=== PATIENT | female | born 1970 | race Caucasian/White ===

== ENCOUNTER 2016-09-18 13:07 | Emergency (ER) | payer OTHER ==
[2016-09-18 13:57] VITALS: BMI 31.1
--- NOTE | 2016-09-18 14:16 | PDOC ---
[id number] No Limitations - History of Present Illness Initial Comments: 09/18/16 15:39 Patient is a 46 year old female with significant past medical history of MRDD developmentally delayed who presents to the ED sent by PCP for elevated BP. Patients aid reports a cough with phlegm. She also notes that the patient has been complaining of ear pain. She states that the patient has been feeling nauseous. She denies fever, chills, vomiting, diarrhea, constipation. <Ayanna Ordaz - Last Filed: 09/18/16 19:09> <Rico Liao - Last Filed: 10/31/16 09:53> - General Chief Complaint: Urinary Problem Stated Complaint: HYPERTENSION Time Seen by Provider: 09/18/16 14:16 Past History <Ayanna Ordaz - Last Filed: 09/18/16 19:09> - Past Medical History Other medical history: MR - Immunization History Immunization Up to Date: Yes - Psycho/Social/Smoking Cessation Hx Suicidal Ideation: No Smoking History: Never smoked <Rico Liao - Last Filed: 10/31/16 09:53> - Past Medical History Allergies/Adverse Reactions: Allergies Allergy/AdvReac Type Severity Reaction Status Date / Time nitrofurantoin Allergy Verified 09/18/16 14:28 Penicillins Allergy Verified 09/18/16 14:28 Home Medications: Ambulatory Orders Atorvastatin Calcium [Lipitor] 10 mg PO HS 09/18/16 Esomeprazole Magnesium [Nexium] 40 mg PO DAILY 09/18/16 Ezetimibe [Zetia] 10 mg PO DAILY 09/18/16 Folic Acid - 1 mg PO DAILY 09/18/16 Ibuprofen [Motrin -] 800 mg PO TID PRN 09/18/16 Omega3/Dha/Epa/Fish Oil/Vit D3 1 tab PO DAILY 09/18/16 Vitamin B Complex [B Complex] 1 each PO DAILY 09/18/16 Review of Systems - Review of Systems Able to Perform ROS?: Yes Comments:: 09/18/16 15:40 GENERAL/CONSTITUTIONAL: No fever or chills. No weakness. HEAD, EYES, EARS, NOSE AND THROAT: +ear pain. No change in vision. No discharge. No sore throat. CARDIOVASCULAR: No chest pain or shortness of breath. RESPIRATORY: +cough, No wheezing, or hemoptysis. GASTROINTESTINAL: +nausea, No vomiting, diarrhea or constipation. GENITOURINARY: No dysuria, frequency, or change in urination. MUSCULOSKELETAL: No joint or muscle swelling or pain. No neck or back pain. SKIN: No rash NEUROLOGIC: No headache, vertigo, loss of consciousness, or change in strength/ sensation. ENDOCRINE: No increased thirst. No abnormal weight change. HEMATOLOGIC/LYMPHATIC: No anemia, easy bleeding, or history of blood clots. ALLERGIC/IMMUNOLOGIC: No hives or skin allergy. <Ayanna Ordaz - Last Filed: 09/18/16 19:09> *Physical Exam - Vital Signs Last Vital Signs Temp Pulse Resp BP Pulse Ox 100.3 F H 106 H 20 138/102 95 09/18/16 13:54 09/18/16 13:54 09/18/16 13:54 09/18/16 13:54 09/18/16 13:54 - Physical Exam Comments: 09/18/16 15:40 GENERAL: Awake, alert, and fully oriented, in no acute distress HEAD: No signs of trauma EYES: PERRLA, EOMI, sclera anicteric, conjunctiva clear ENT: +TMs erythematous bilaterally. Hearing grossly normal, nares patent, oropharynx clear without exudates. Moist mucosa NECK: Normal ROM, supple, no lymphadenopathy, JVD, or masses LUNGS: Breath sounds equal, clear to auscultation bilaterally. No wheezes, and no crackles HEART: Regular rate and rhythm, normal S1 and S2, no murmurs, rubs or gallops ABDOMEN: Soft, nontender, normoactive bowel sounds. No guarding, no rebound. No masses EXTREMITIES: Normal range of motion, no edema. No clubbing or cyanosis. No cords, erythema, or tenderness NEUROLOGICAL: Cranial nerves II through XII grossly intact. Normal speech, normal gait SKIN: Warm, Dry, normal turgor, no rashes or lesions noted. <Ayanna Ordaz - Last Filed: 09/18/16 19:09> - Vital Signs Last Vital Signs Temp Pulse Resp BP Pulse Ox 100.3 F H 106 H 20 138/102 95 09/18/16 13:54 09/18/16 13:54 09/18/16 13:54 09/18/16 13:54 09/18/16 13:54 <Rico Liao - Last Filed: 10/31/16 09:53> Heart Score/ECG Review #1 09/18/16 16:33 EKG was reviewed by Dr. Liao Impression: sinus tachycardia at [address] and T wave abnormality <Ayanna Ordaz - Last Filed: 09/18/16 19:09> ED Treatment Course - LABORATORY CBC & Chemistry Diagram: 09/18/16 15:33 09/18/16 15:27 - RADIOLOGY Radiology Studies Ordered: 09/18/16 17:15 EXAM#: TYPE/EXAM: RESULT: [id number] RAD/CHEST X-RAY PORTABLE* HISTORY PROVIDED: Cough. A single frontal portable projection of the chest at 3:53 PM is submitted. Agris heart size is enlarged. There are some increased markings throughout the lung allen suggesting a mild degree of acute congestion. Clinical correlation is advised. No discrete infiltrates or pleural effusions are present. Spinal rods are noted within the thoracic spine. IMPRESSION: Cardiomegaly and possible mild congestion. <Ayanna Ordaz - Last Filed: 09/18/16 19:09> - LABORATORY CBC & Chemistry Diagram: 09/18/16 15:33 09/18/16 15:27 <Rico Liao - Last Filed: 10/31/16 09:53> Medical Decision Making - Medical Decision Making 09/18/16 15:41 Patient is a 46 year old female with significant past medical history of MRDD developmentally delayed who presents to the ED sent by PCP for elevated BP. BP was very high in the office he called an ambulance. She went to see him for the cough. I believe that hypertension is situational and will treat for bronchitis. Will order CXR, blood cultures, lactic, septic workup, levaquin because shes allergic to penicillin. 09/18/16 19:09 Since my shift is over, I endorse continuation of care to Dr. Sierra the overnight attending. <Ayanna Ordaz - Last Filed: 09/18/16 19:09> *DC/Admit/Observation/Transfer - Attestations Scribe Attestion: 09/18/16 15:42 Documentation prepared by CASA Lozada, acting as internist medical doctor md for Rico Liao MD/DO. <Ayanna Ordaz - Last Filed: 09/18/16 19:09> - Attestations Physician Attestion: 09/18/16 14:16 I, Dr. Rico Liao, attest that this document has been prepared under my direction and personally reviewed by me in its entirety. I further attest, that it accurately reflects all work, treatment, procedures and medical decision -making performed by me. <Rico Liao - Last Filed: 10/31/16 09:53> Diagnosis at time of Disposition: URI, acute CHF (congestive heart failure) Qualifiers: Congestive heart failure type: unspecified congestive heart failure type Congestive heart failure chronicity: chronic Qualified Code(s): I50.9 - Heart failure, unspecified - Discharge Dispostion Disposition: HOME Condition at time of disposition: Stable - Referrals Referrals: Sarahi Sutton MD [Primary Care Provider] - - Patient Instructions Additional Instructions: CONTINUE ALL YOUR MEDICATIONS PRESCRIBED NO "FLU" MEDICATIONS (NYQUIL/SUDAFED/TYLENOL-FLU, ETC) TYLENOL IF FEVER USUAL DIET FOLLOW UP PCP RETURN IF WORSENING OR NEW SYMPTOMS
[2016-09-18] MEDS ORDERED: LEVOFLOXACIN 750 MG IVPB 150 ML IVPB ONE (15:36)
[2016-09-18] MEDS ORDERED: LORAZEPAM CARPU-JECT 2 MG/ML DISP.SYRIN IVPUSH ONE (15:38)
[2016-09-18 15:41] LABS: BASOPHIL 0.4 % (0-2.0); EOSINOPHIL 1.5 % (0-4.5); MEAN CELL VOLUME 85.5 fl (80-96); MEAN PLT VOLUME 8.9 fl (7.5-11.1); NEUTROPHILS 84.4 % (42.8-82.8); PLATELET COUNT 242 K/MM3 (134-434); RDW 14.2 % (11.6-15.6); WHITE BLOOD COUNT 10.4 K/mm3 (4.0-10.0)
[2016-09-18 15:54] LABS: INR 1.2 (0.82-1.09); PROTHROMBIN TIME (PATIENT) 13.2 SEC (9.98-11.88)
[2016-09-18] MEDS ORDERED: ACETAMINOPHEN 325 MG TABLET (FP) ONE (16:08)
[2016-09-18 16:12] LABS: ALBUMIN 3.9 g/dl (3.4-5.0); ANION GAP 10 (8-16); BILIRUBIN,TOTAL 0.7 mg/dL (0.2-1.0); CALCIUM 9.3 mg/dL (8.5-10.1); CO2 27 mmol/L (21-32); CREATININE 0.6 mg/dL (0.55-1.02); GLUCOSE,RANDOM 100 mg/dL (74-106); SGPT/ALT 45 U/L (12-78)
[2016-09-18 16:14] LABS: ALK PHOS 195 U/L (45-117); TROPONIN I < 0.02 ng/ml (0.00-0.05)
[2016-09-18 16:15] LABS: SGOT/AST 36 U/L (15-37)
[2016-09-18] MEDS ORDERED: ACETAMINOPHEN INJECTION 100 ML IVPB ONE (16:25)
[2016-09-18] MEDS ORDERED: ACETAMINOPHEN 1000 MG/100 ML VIAL (NON FORMULARY) IVPB ONE (16:26)
[2016-09-18 16:33] LABS: URINE APPEARANCE CLEAR; URINE BILIRUBIN NEGATIVE (NEGATIVE); URINE COLOR LTYELLOW; URINE GLUCOSE (UA) NEGATIVE (NEGATIVE); URINE KETONE NEGATIVE (NEGATIVE); URINE LEUK ESTERASE NEGATIVE (NEGATIVE); URINE NITRITE NEGATIVE (NEGATIVE); URINE UROBILINOGEN NEGATIVE E.U./dl (0.2-1.0)
[2016-09-18 16:51] LABS: URINE BLOOD 1+ (NEGATIVE); URINE PROTEIN 2+ (NEGATIVE)
[2016-09-18 16:54] LABS: URINE BACTERIA RARE /hpf (NONE SEEN); URINE MUCUS RARE; URINE RBC 1 /hpf (0-3); URINE WBC 2 /hpf (3-5)
[2016-09-18] MEDS ORDERED: cloNIDine HCL 0.1 MG TABLET ONE (16:58)
[2016-09-18] MEDS ORDERED: cloNIDine HCL 0.1 MG TABLET PO ONE (16:59)
[2016-09-18] MEDS ORDERED: hydrALAZINE HCL 20 MG/ML VIAL ONE (18:18)
[2016-09-18] MEDS ORDERED: SODIUM CHLORIDE 1,000 ML IV STA (18:34)
[2016-09-18] MEDS ORDERED: hydrALAZINE HCL 20 MG/ML VIAL IVPUSH PRN (18:34)
[2016-09-18] MEDS ORDERED: FUROSEMIDE 40 MG/4 ML INJECTABLE VIAL IVPUSH ONE (20:44)
--- NOTE | 2016-09-18 20:44 | PDOC ---
*Physical Exam - Vital Signs Last Vital Signs Temp Pulse Resp BP Pulse Ox 99 F 120 H 26 H 138/64 98 09/18/16 19:49 09/18/16 19:49 09/18/16 19:49 09/18/16 19:49 09/18/16 19:49 - Physical Exam Comments: 09/18/16 20:40 IN NAD. CXR SHOWING MILD CONGESTION LASIX 10 IV URI WILL NOT CTA AT THIS POINT BECAUSE HER DX IS MILD CHF 09/18/16 20:41 ED Treatment Course - LABORATORY CBC & Chemistry Diagram: 09/18/16 15:33 09/18/16 15:27 - ADDITIONAL ORDERS Additional order review: Laboratory Results 09/18/16 09/18/16 09/18/16 17:30 16:25 15:33 INR Sodium Potassium Chloride Carbon Dioxide Anion Gap BUN Creatinine Creat Clearance w eGFR Random Glucose Lactic Acid 0.916 Calcium Total Bilirubin AST ALT Alkaline Phosphatase Creatine Kinase Troponin I B-Natriuretic Peptide 263.52 H Total Protein Albumin Urine Color Ltyellow Urine Appearance Clear Urine pH 7.0 Ur Specific [place] 1.012 Urine Protein 2+ H Urine Glucose (UA) Negative Urine Ketones Negative Urine Blood 1+ H Urine Nitrite Negative Urine Bilirubin Negative Urine Urobilinogen Negative Ur Leukocyte Esterase Negative Urine RBC 1 Urine WBC 2 Ur Epithelial Cells Rare Urine Bacteria Rare Urine Mucus Rare 09/18/16 09/18/16 15:33 15:27 INR 1.20 H Sodium 143 Potassium 3.9 Chloride 106 Carbon Dioxide 27 Anion Gap 10 BUN 10 Creatinine 0.6 Creat Clearance w eGFR > 60 Random Glucose 100 Lactic Acid Calcium 9.3 Total Bilirubin 0.7 AST 36 ALT 45 Alkaline Phosphatase 195 H Creatine Kinase 75 Troponin I < 0.02 B-Natriuretic Peptide Total Protein 8.0 Albumin 3.9 Urine Color Urine Appearance Urine pH Ur Specific [place] Urine Protein Urine Glucose (UA) Urine Ketones Urine Blood Urine Nitrite Urine Bilirubin Urine Urobilinogen Ur Leukocyte Esterase Urine RBC Urine WBC Ur Epithelial Cells Urine Bacteria Urine Mucus 09/18/16 15:33 Influenza Types A,B Antigen (LUL) - Final Nasopharyngeal Swab - Final 09/18/16 15:33 RBC 4.52 MCV 85.5 MCHC 34.0 RDW 14.2 MPV 8.9 Neutrophils % 84.4 H Lymphocytes % 8.8 Monocytes % 4.9 Eosinophils % 1.5 Basophils % 0.4 - Medications Given in the ED: ED Medications Discontinued Medications Generic Name Dose Route Start Last Admin Trade Name Kirit PRN Reason Stop Dose Admin Acetaminophen 1,000 mg 09/18/16 16:26 09/18/16 16:26 Ofirmev Injection - IVPB 09/18/16 16:27 1,000 mg NOW ONE Administration Clonidine 0.1 mg 09/18/16 16:59 09/18/16 16:59 Catapres - PO 09/18/16 17:00 0.1 mg NOW ONE Administration Levofloxacin 150 mls @ 100 mls/hr 09/18/16 15:36 09/18/16 16:25 Levaquin 750 Mg Premixed Ivpb - IVPB 09/18/16 17:05 100 mls/hr ONCE ONE Administration Sodium Chloride 1,000 mls @ 1,000 mls/hr 09/18/16 18:34 09/18/16 18:41 Normal Saline - IV 09/18/16 19:33 1,000 mls/hr ASDIR STA Administration Lorazepam 1 mg 09/18/16 15:38 09/18/16 16:41 Ativan Injection - IVPUSH 09/18/16 15:39 Not Given ONCE ONE *DC/Admit/Observation/Transfer Diagnosis at time of Disposition: Acute upper respiratory infection Congestive heart failure Qualifiers: Congestive heart failure type: unspecified congestive heart failure type Congestive heart failure chronicity: chronic Qualified Code(s): I50.9 - Heart failure, unspecified - Discharge Dispostion Disposition: HOME Condition at time of disposition: Stable - Referrals Referrals: Sarahi Sutton MD [Primary Care Provider] - - Patient Instructions Additional Instructions: CONTINUE ALL YOUR MEDICATIONS PRESCRIBED NO "FLU" MEDICATIONS (NYQUIL/SUDAFED/TYLENOL-FLU, ETC) TYLENOL IF FEVER USUAL DIET FOLLOW UP PCP RETURN IF WORSENING OR NEW SYMPTOMS - Post Discharge Activity
[2016-09-18] MEDS ORDERED: FUROSEMIDE 40 MG/4 ML INJECTABLE VIAL ONE (21:10)
[2016-09-18 21:43] VITALS: BP 117/65; PULSE 105; TEMP 98.7
--- NOTE | 2016-09-19 17:49 | EKG ---
Test Reason : Blood Pressure : / mmHG Vent. Rate : 112 BPM Atrial Rate : 112 BPM P-R Int : 132 ms QRS Dur : 080 ms QT Int : 356 ms P-R-T Axes : 040 009 049 degrees QTc Int : 485 ms SINUS TACHYCARDIA NONSPECIFIC ST AND T WAVE ABNORMALITY ABNORMAL ECG WHEN COMPARED WITH ECG OF 18-SEP-2016 14:31, T WAVE VARIATION Confirmed by ALLIE LITTLE MD ([id number]) on 09/19/2016 5:48:58 PM Referred By: Confirmed By:ALLIE LITTLE MD
--- NOTE | 2016-09-24 10:30 | EKG ---
Test Reason : Blood Pressure : / mmHG Vent. Rate : 101 BPM Atrial Rate : 101 BPM P-R Int : 136 ms QRS Dur : 084 ms QT Int : 338 ms P-R-T Axes : 030 012 024 degrees QTc Int : 438 ms SINUS TACHYCARDIA NONSPECIFIC ST AND T WAVE ABNORMALITY ABNORMAL ECG NO PREVIOUS ECGS AVAILABLE Confirmed by IRA KASPER MD ([id number]) on 09/24/2016 10:30:11 AM Referred By: Confirmed By:IRA KASPER MD
== END 2016-09-18 23:38 | disposition home or self-care (01) ==
LOC: JER 13:07
PROC: 3E0337Z Introduction of Electrolytic and Water Balance Substance into Peripheral Vein, Percutaneous Approach (ICD-10-PCS; principal; 2016-09-18)
PROC: 3E03329 Introduction of Other Anti-infective into Peripheral Vein, Percutaneous Approach (ICD-10-PCS; 2016-09-18)
PROC: 3E033NZ Introduction of Analgesics, Hypnotics, Sedatives into Peripheral Vein, Percutaneous Approach (ICD-10-PCS; 2016-09-18)
PROC: 3E033GC Introduction of Other Therapeutic Substance into Peripheral Vein, Percutaneous Approach (ICD-10-PCS; 2016-09-18)
DX: I50.9 Heart failure, unspecified (principal); J06.9 Acute upper respiratory infection, unspecified; I10 Essential (primary) hypertension
CPT/HCPCS: 36415; 71010-TC; 80053; 81003; 81015; 82550; 83605; 83880; 84484; 85025; 85610; 87040; 87086; 87804; 93005; 93010; 96361; 96365; 96375; 99284-25

== ENCOUNTER 2019-10-15 10:23 | Day surgery (SDC) | payer OTHER ==
[2019-10-15] MEDS ORDERED: DEXAMETHASONE SOD PHOSPHATE 10 MG/1 ML VIAL IVPB ONE ×2 (11:00→11:45)
[2019-10-15] MEDS ORDERED: ACETAMINOPHEN 325 MG TABLET (FP) PO ONE (11:00)
[2019-10-15] MEDS ORDERED: RITUXIMAB IVPB ONE (11:30)
[2019-10-15] MEDS ORDERED: SODIUM CHLORIDE IVPB ONE (11:30)
[2019-10-15 16:47] VITALS: PULSE 79
[2019-10-21 10:04] VITALS: BP 141/86; TEMP 98.8
== END 2019-10-15 20:45 | disposition home or self-care (01) ==
LOC: JCHEMO 10:23 → J7W 10:24 → JCHEMO 20:45
PROVIDERS: ATTEND Internal Medicine Hematology & Oncology
PROC: XW033B3 Introduction of Cytarabine and Daunorubicin Liposome Antineoplastic into Peripheral Vein, Percutaneous Approach, New Technology Group 3 (ICD-10-PCS; principal; 2019-10-15)
DX: Z51.11 Encounter for antineoplastic chemotherapy (principal); C82.03 Follicular lymphoma grade I, intra-abdominal lymph nodes
CPT/HCPCS: 96367; 96413; 96415; J1100; J7030; J9312

== ENCOUNTER 2019-10-22 10:27 | Day surgery (SDC) | payer OTHER ==
[2019-10-22] MEDS ORDERED: DEXAMETHASONE SODIUM PHOSPHATE IVPB ONE (11:00)
[2019-10-22] MEDS ORDERED: SODIUM CHLORIDE IVPB ONE ×2 (11:00→11:30)
[2019-10-22] MEDS ORDERED: ACETAMINOPHEN 325 MG TABLET (FP) PO ONE (11:00)
[2019-10-22] MEDS ORDERED: DIPHENHYDRAMINE IVPB ONE (11:00)
[2019-10-22] MEDS ORDERED: RITUXIMAB IVPB ONE (11:30)
[2019-10-22 12:47] LABS: BASO % 0.8 % (0-2.0); EOS % 3.1 % (0-4.5); HEMATOCRIT 32.8 % (32.4-45.2); HEMOGLOBIN 11.2 GM/dL (10.7-15.3); MCH 29.5 pg (25.7-33.7); MCHC 34.1 g/dl (32.0-36.0); MEAN CELL VOLUME 86.5 fl (80-96); MEAN PLT VOLUME 8.3 fl (7.5-11.1); MONO % 6.7 % (3.8-10.2); NEUT % 79.4 % (42.8-82.8); PLATELET COUNT 257 K/MM3 (134-434); RBC 3.79 M/mm3 (3.60-5.2); RDW 13.9 % (11.6-15.6); WHITE BLOOD COUNT 7.4 K/mm3 (4.0-10.0)
[2019-10-22 13:18] LABS: ALBUMIN 3.8 g/dl (3.4-5.0); BILIRUBIN,DIRECT 0.2 mg/dL (0.0-0.2); BILIRUBIN,TOTAL 0.6 mg/dL (0.2-1); BLOOD UREA NITROGEN 22.9 mg/dL (7-18); CALCIUM 9.3 mg/dL (8.5-10.1); CREATININE 0.8 mg/dL (0.55-1.3); POTASSIUM 3.9 mmol/L (3.5-5.1); TOT PROT 7.4 g/dl (6.4-8.2); URIC ACID 2.9 mg/dL (2.6-7.2)
[2019-10-22 18:26] VITALS: TEMP 98.5
[2019-10-22 18:31] VITALS: BP 117/73; PULSE 98
== END 2019-10-22 16:30 | disposition home or self-care (01) ==
LOC: JCHEMO 10:27 → J7W 10:29 → JCHEMO 16:30
PROVIDERS: ATTEND Internal Medicine Hematology & Oncology
DX: Z51.11 Encounter for antineoplastic chemotherapy (principal); C82.03 Follicular lymphoma grade I, intra-abdominal lymph nodes
CPT/HCPCS: 36415; 80048; 80076; 84100; 84550; 85025; J7030; J9312

== ENCOUNTER 2019-11-05 10:00 | Day surgery (SDC) | payer OTHER ==
[2019-11-05 11:43] LABS: BASO % 0.8 % (0-2.0); EOS % 1.8 % (0-4.5); HEMATOCRIT 34.7 % (32.4-45.2); HEMOGLOBIN 11.8 GM/dL (10.7-15.3); LYMPH % 7.4 % (8-40); MCH 29.4 pg (25.7-33.7); MCHC 34.1 g/dl (32.0-36.0); MEAN CELL VOLUME 86.3 fl (80-96); MEAN PLT VOLUME 8.6 fl (7.5-11.1); MONO % 5.2 % (3.8-10.2); NEUT % 84.8 % (42.8-82.8); PLATELET COUNT 269 K/MM3 (134-434); RBC 4.03 M/mm3 (3.60-5.2); RDW 13.8 % (11.6-15.6); WHITE BLOOD COUNT 10.2 K/mm3 (4.0-10.0)
[2019-11-05 12:22] LABS: ALBUMIN 3.9 g/dl (3.4-5.0); BILIRUBIN,DIRECT 0.3 mg/dL (0.0-0.2); BLOOD UREA NITROGEN 18.5 mg/dL (7-18); CALCIUM 9.4 mg/dL (8.5-10.1); CREATININE 0.9 mg/dL (0.55-1.3); PHOSPHOROUS 3.8 mg/dL (2.5-4.9); POTASSIUM 3.8 mmol/L (3.5-5.1); TOT PROT 7.7 g/dl (6.4-8.2)
[2019-11-05] MEDS ORDERED: SODIUM CHLORIDE IVPB ONE ×2 (12:30→13:00)
[2019-11-05] MEDS ORDERED: DEXAMETHASONE IVPB ONE (12:30)
[2019-11-05] MEDS ORDERED: DIPHENHYDRAMINE IVPB ONE (12:30)
[2019-11-05] MEDS ORDERED: ACETAMINOPHEN 325 MG TABLET (FP) PO ONE (12:30)
[2019-11-05] MEDS ORDERED: RITUXIMAB IVPB ONE (13:00)
[2019-11-05 15:40] VITALS: PULSE 90; TEMP 97.7
[2019-11-05 16:14] VITALS: BP 118/68
== END 2019-11-05 16:08 | disposition home or self-care (01) ==
LOC: J7W 10:00 → JCHEMO 10:00
PROVIDERS: ATTEND Internal Medicine Hematology & Oncology
DX: Z51.11 Encounter for antineoplastic chemotherapy (principal); C82.03 Follicular lymphoma grade I, intra-abdominal lymph nodes
CPT/HCPCS: 36415; 80048; 80076; 84100; 84550; 85025; 96367; 96413; 96415; J1100; J9312